=== PATIENT | male | born 1955 | race Asian ===

== ENCOUNTER 2023-02-25 17:56 | Inpatient (IN) | payer MEDICARE ==
[~2023-02-25] VITALS: Ht 157.5 cm; Wt 62.4 kg
[2023-02-25 18:44] LABS: Basophils # (auto) 0 10 ^3/uL (0-0.2); Basophils % (auto) 0.4 % (0.0-2.0); Eosinophils # (auto) 0.1 10 ^3/uL (0-0.8); Eosinophils % (auto) 0.8 % (0.0-7.0); Hematocrit 40.8 % (41.0-53.0); Hemoglobin 14.1 g/dL (13.5-17.5); Lymphocytes % (auto) 18.6 % (10.0-50.0); Mean Corpuscular Hemoglobin 30.9 pg (28.0-32.0); Mean Corpuscular Hgb Conc. 34.5 g/dL (32.0-36.0); Mean Corpuscular Volume 89.5 fL (80.0-100.0); Monocytes # (auto) 0.7 10 ^3/uL (0-1.3); Monocytes % (auto) 6.7 % (0.0-12.0); Neutrophils # (auto) 7.8 10 ^3/uL (1.6-8.6); Neutrophils % (auto) 73.5 % (37.0-80.0); Red Blood Cells 4.56 10^6/uL (4.5-5.90); Red Cell Distribution Width 13.6 % (11.8-14.3); White Blood Cell 10.6 10^3/uL (4.4-10.8)
[2023-02-25 19:10] LABS: Alanine Aminotransferase 26 U/L (7-40); Albumin 4.4 g/dL (3.2-4.8); Alkaline Phosphatase 41 U/L (46-116); Anion Gap 11 (5-15); Aspartate Aminotransferase 24 U/L (13-40); BUN/Creatinine Ratio 15.3 (10.0-20.0); Bilirubin, Total 1.1 mg/dL (0.2-1.0); Blood Urea Nitrogen 15 mg/dL (9-23); Calcium 9.2 mg/dL (8.5-10.1); Carbon Dioxide 23 mmol/L (20-30); Chloride 103 mmol/L (98-107); Glucose 188 mg/dL (74-106); Potassium 3.4 mmol/L (3.5-5.1); Sodium 137 mmol/L (136-145); Total Protein 7.3 g/dL (5.7-8.2)
[2023-02-25] MEDS ORDERED: SODIUM CHLORIDE 0.9% 1,000 ML IV ONE (20:30)
[2023-02-25] MEDS ORDERED: HYDROmorphone HCL 2 MG/ML VL/or syr IV ONE (20:30)
[2023-02-25 22:59] LABS: Urine Bacteria NONE SEEN /hpf (None Seen); Urine Blood 1+ /uL (Negative); Urine Clarity Clear (Clear); Urine Color Yellow (Yellow); Urine Hyaline Cast FEW /lpf (0 - 2); Urine Mucus FEW (None Seen); Urine Protein, UAD Negative (Negative); Urine Specific Gravity 1.019 (1.001-1.035); Urine Urobilinogen Normal (Negative); Urine WBC 2 /hpf (0 - 3)
[2023-02-26] MEDS ORDERED: POTASSIUM CHL 20 Meq TABLET PO ONE
[2023-02-26] MEDS ORDERED: ACETAMINOPHEN 325 MG TAB PO PRN
[2023-02-26] MEDS ORDERED: TEMAZEPAM 15 MG CAP PO PRN
[2023-02-26] MEDS ORDERED: HYDROcodone-ACET 5/325MG TAB PO PRN
[2023-02-26] MEDS ORDERED: ONDANSETRON HCL 4 MG/2 ML VIAL IV PRN
[2023-02-26] MEDS ORDERED: MORPHINE SULFATE INJ 2 MG/ml SYRG IV PRN
[2023-02-26 01:35] VITALS: PULSE 69; RESP 14; O2SAT 97
[2023-02-26 05:43] LABS: Basophils # (auto) 0 10 ^3/uL (0-0.2); Basophils % (auto) 0.4 % (0.0-2.0); Eosinophils # (auto) 0.1 10 ^3/uL (0-0.8); Eosinophils % (auto) 1.5 % (0.0-7.0); Hematocrit 38.3 % (41.0-53.0); Hemoglobin 13.1 g/dL (13.5-17.5); Lymphocytes # (auto) 1.8 10 ^3/uL (0.4-5.4); Lymphocytes % (auto) 26.6 % (10.0-50.0); Mean Corpuscular Hemoglobin 30.8 pg (28.0-32.0); Mean Corpuscular Hgb Conc. 34.2 g/dL (32.0-36.0); Mean Corpuscular Volume 90.1 fL (80.0-100.0); Monocytes # (auto) 0.8 10 ^3/uL (0-1.3); Neutrophils # (auto) 4.2 10 ^3/uL (1.6-8.6); Neutrophils % (auto) 60.5 % (37.0-80.0); Nucleated Red Blood Cells % 0.1 %; Red Blood Cells 4.25 10^6/uL (4.5-5.90); Red Cell Distribution Width 13.6 % (11.8-14.3); White Blood Cell 6.9 10^3/uL (4.4-10.8)
[2023-02-26 05:51] LABS: Chloride 105 mmol/L (98-107); Potassium 3.3 mmol/L (3.5-5.1); Sodium 140 mmol/L (136-145)
[2023-02-26 05:52] LABS: Anion Gap 9 (5-15); Calcium 8.7 mg/dL (8.5-10.1); Carbon Dioxide 26 mmol/L (20-30)
[2023-02-26 05:57] LABS: BUN/Creatinine Ratio 15.9 (10.0-20.0); Blood Urea Nitrogen 11 mg/dL (9-23); Glucose 124 mg/dL (74-106)
[2023-02-26 07:43] VITALS: PULSE 66; RESP 17; O2SAT 98
[2023-02-26] MEDS: SODIUM CHLORIDE 0.9% 1,000 ML IV SCH ×2 (15:12→21:07)
[2023-02-26] MEDS: cefTRIAXone 1GM/50ML D5W 50 ML IV SCH (15:13)
[2023-02-26 16:07] VITALS: BP 145/71; PULSE 64; RESP 20; TEMP 97.8; O2SAT 99
[2023-02-26 17:06] VITALS: BP 145/71; PULSE 64; RESP 20; TEMP 97.8; O2SAT 98
[2023-02-26] MEDS: TAMSULOSIN HYDROCHLORIDE 0.4 MG CAP PO SCH (18:02)
[2023-02-26 22:00] VITALS: BP 108/74; PULSE 87; RESP 18; TEMP 97.6; O2SAT 95
[2023-02-27] MEDS: SODIUM CHLORIDE 0.9% 1,000 ML IV SCH ×4 (04:28→23:50)
[2023-02-27 05:00] VITALS: BP 133/74; PULSE 67; RESP 18; TEMP 98.2; O2SAT 98
[2023-02-27 06:35] LABS: Alanine Aminotransferase 17 U/L (7-40); Albumin 3.6 g/dL (3.2-4.8); Alkaline Phosphatase 39 U/L (46-116); Anion Gap 4 (5-15); Aspartate Aminotransferase 16 U/L (13-40); BUN/Creatinine Ratio 18.1 (10.0-20.0); Blood Urea Nitrogen 13 mg/dL (9-23); Calcium 8.2 mg/dL (8.7-10.4); Carbon Dioxide 28 mmol/L (20-30); Chloride 109 mmol/L (98-107); Glucose 133 mg/dL (74-106); Potassium 3.6 mmol/L (3.5-5.1); Sodium 141 mmol/L (136-145)
[2023-02-27 06:36] LABS: Bilirubin, Total 0.8 mg/dL (0.2-1.0)
[2023-02-27 09:00] VITALS: BP 133/79; PULSE 72; RESP 18; TEMP 97.6; O2SAT 98
[2023-02-27] MEDS: cefTRIAXone 1GM/50ML D5W 50 ML IV SCH (10:12)
[2023-02-27 13:00] VITALS: BP 141/84; PULSE 66; RESP 18; TEMP 97.4; O2SAT 98
[2023-02-27 16:41] VITALS: BP 134/71; PULSE 70; RESP 18; TEMP 98.1; O2SAT 94
[2023-02-27] MEDS: TAMSULOSIN HYDROCHLORIDE 0.4 MG CAP PO SCH (18:21)
[2023-02-27 20:20] VITALS: PULSE 71; RESP 14; O2SAT 100
[2023-02-27 22:00] VITALS: BP 142/75; PULSE 71; RESP 18; TEMP 98.4; O2SAT 94
[2023-02-28 05:00] VITALS: BP 136/81; PULSE 70; RESP 18; TEMP 98.1; O2SAT 96
[2023-02-28] MEDS ORDERED: CIPROFLOXACIN 400MG/200ML 200 ML IV ONE (07:27)
[2023-02-28] MEDS: SODIUM CHLORIDE 0.9% 1,000 ML IV SCH ×2 (07:35→12:59)
[2023-02-28 08:48] VITALS: O2SAT 100
[2023-02-28] MEDS ORDERED: LABETALOL HCL 5 MG/ML 4ML SYRINGE IV PRN (09:00)
[2023-02-28] MEDS ORDERED: NALOXONE HCL 0.4 MG/ML VIAL IV PRN (09:00)
[2023-02-28] MEDS ORDERED: ePHEDrine SULFATE 50 MG/ML AMP IV PRN (09:00)
[2023-02-28] MEDS ORDERED: fentaNYL CITRATE 100 MCG/2 ML VL IV PRN (09:00)
[2023-02-28] MEDS ORDERED: FLUMAZENIL 0.1 MG/ML INJ 10ML MDV IV PRN (09:00)
[2023-02-28] MEDS ORDERED: HYDROmorphone HCL 2 MG/ML VL/or syr IV PRN (09:00)
[2023-02-28] MEDS ORDERED: hydrALAZINE HCL 20 MG/ML VL IV PRN (09:00)
[2023-02-28] MEDS ORDERED: ONDANSETRON HCL 4 MG/2 ML VIAL IV PRN (09:00)
[2023-02-28] MEDS: IOHEXOL 300 MG/ML 100ML BOTTLE IJ ONE ×2 (10:25→12:25)
[2023-02-28] MEDS: cefTRIAXone 1GM/50ML D5W 50 ML IV SCH (10:25)
[2023-02-28 12:32] LABS: INR 1.14 (0.9-1.15); Partial Thromboplastin Time 27.1 SEC (24.5-34.5); Prothrombin Time 11.9 sec (9.3-11.8)
[2023-02-28 12:49] VITALS: TEMP 36.6
[2023-02-28 13:00] VITALS: BP 142/88; PULSE 93; RESP 18; TEMP 97.6; O2SAT 95
== END 2023-02-28 16:20 | disposition home or self-care (01) | DRG 694 ==
LOC: ER 17:56 → OVERFLOW 23:59 → CENTRAL 02-26 15:40
PROVIDERS: ADMIT Nurse Practitioner; ATTEND Nurse Practitioner Acute Care
PROC: 0TC18ZZ Extirpation of Matter from Left Kidney, Via Natural or Artificial Opening Endoscopic (ICD-10-PCS; principal; 2023-02-28 07:33)
PROC: BT1FYZZ Fluoroscopy of Left Kidney, Ureter and Bladder using Other Contrast (ICD-10-PCS; 2023-02-28 07:33)
DX: N20.0 Calculus of kidney (principal); N12 Tubulo-interstitial nephritis, not specified as acute or chronic; E87.6 Hypokalemia; E11.9 Type 2 diabetes mellitus without complications; R31.9 Hematuria, unspecified; N13.9 Obstructive and reflux uropathy, unspecified
CPT/HCPCS: 36415; 71045; 74177; 76775; 80048; 80053; 81001; 82962; 83036; 85025; 85610; 85730; 93005; G0378; J0696